=== PATIENT | female | born 1975 | race Caucasian/White ===

== ENCOUNTER 2017-10-03 12:24 | Emergency (ER) | payer MEDICAID ==
[2017-10-03 12:33] VITALS: TEMP 98.4
[2017-10-03] MEDS ORDERED: ASPIRIN 81 MG CHEWABLE TAB PO ONE (12:35)
--- NOTE | 2017-10-03 12:39 | CPEKG ---
Heart Rate: 85 RR Interval: 706 P-R Interval: 188 QRSD Interval: 78 QT Interval: 360 QTC Interval: 428 P [place]: 37 QRS [place]: -3 T Wave [place]: 38 EKG Severity - ABNORMAL ECG - EKG Impression: SINUS RHYTHM EKG Impression: NONSPECIFIC T ABNORMALITIES, ANTERIOR LEADS Electronically Signed By: Isaac Perkins 06-Oct-2017 11:06:38
--- NOTE | 2017-10-03 12:39 | CPEKG ---
Heart Rate: 85 RR Interval: 706 P-R Interval: 188 QRSD Interval: 78 QT Interval: 360 QTC Interval: 428 P [place]: 37 QRS [place]: -3 T Wave [place]: 38 EKG Severity - ABNORMAL ECG - EKG Impression: SINUS RHYTHM EKG Impression: NONSPECIFIC T ABNORMALITIES, ANTERIOR LEADS Electronically Signed By: Isaac Perkins 06-Oct-2017 11:06:38
--- NOTE | 2017-10-03 12:56 | EDPHY ---
H & P Stated Complaint: substernal sharp chest pain off and on 1 hour [employer]; L arm numb ; sob Source: Patient - Personal History LMP (Females 10-55): 8-14 Days Ago Current Tetanus/Diphtheria Vaccine: Unsure - Medical/Surgical History Hx Asthma: No Hx Chronic Respiratory Disease: No Hx Diabetes: No Hx Cardiac Disease: No Hx Renal Disease: No Hx Cirrhosis: No Hx Alcoholism: No Hx HIV/AIDS: No Hx Splenectomy or Spleen Trauma: No Other PMH: C-SEC. ANXIETY. ANEMIA - Family History Significant Family History: No pertinent family hx - Social History Smoking Status: Former smoker Time Seen by Provider: 10/03/17 12:40 HPI/ROS: CHIEF COMPLAINT: Chest pain and shortness of breath History by patient HISTORY OF PRESENT ILLNESS: 42-year-old woman with history of anxiety for which she sometimes takes Xanax presents complaining of shortness of breath which began this morning while she was getting her son ready to go to school. After dropping him off while driving she was still feeling short of breath but then developed a sharp stabbing substernal chest pain which lasted a few seconds. She had 4 episodes of this pain. She now complains of some chest pressure which she describes as light. She also still feels short of breath and has some left arm tingling. She took half of a Xanax pill without any relief of her symptoms. Patient states that she has had this shortness of breath and left arm tingling intermittently in the past but cannot relate this to on exertion or other specific triggers. Patient states that she can sometimes get it wall walking 3 steps and sometimes not get it after walking 3 miles. She denies any leg pain or swelling. She quit smoking 6 years ago. She is not on any hormones. There is no family history of first-degree relatives with cardiac disease or blood clotting. She has no history of hypertension, diabetes and her cholesterol is unknown but she does state that she has gained some weight recently. REVIEW OF SYSTEMS: As in HPI, and all other systems reviewed and are negative (Emily Tom) - Physical Exam Exam: General Appearance: Alert, obese, pleasant, well-appearing. Head: normocephalic, atraumatic Eyes: Pupils equal and round, reactive to light, no pallor or injection. Mouth: Mucous membranes moist. Respiratory: Normal, effort, lungs are clear to auscultation. No wheezes, rales or rhonchi. Cardiovascular: Tachycardia. S1, S2, no murmurs, gallops or rubs appreciated Gastrointestinal: Abdomen is soft and nontender, no masses, bowel sounds normal. Back: No CVA tenderness, no bony tenderness Neurological: Awake, alert and oriented x 3, no pronator drift, normal gait, no pronator drift Skin: Warm and dry, no rashes. Musculoskeletal: No deformities or tenderness. Extremities: full range of motion, no edema, no tenderness DP2+ bilat Psychiatric: Patient has normal affect, there is no agitation. (Emily Tom) Constitutional: Initial Vital Signs Temperature (C) 36.9 C 10/03/17 12:30 Heart Rate 104 H 10/03/17 12:30 Respiratory Rate 20 10/03/17 12:30 Blood Pressure 125/81 H 10/03/17 12:30 O2 Sat (%) 96 10/03/17 12:30 O2 Delivery Mode Room Air Allergies/Adverse Reactions: TOMATOES Allergy (Uncoded 06/15/14 17:55) Home Medications: Medication Instructions Recorded Xanax 0.5 MG (RX) PRN 04/08/14 Medical Decision Making - Diagnostics EKG Interpretation: Normal sinus rhythm at 85 with normal axis, normal intervals and inverted T- waves in the anterior leads. There is no old EKG available for comparison. Impression: Abnormal EKG, no acute ischemia (Emily Tom) An EKG obtained and was read and documented in trace view. Please see trace view for full reading and report. Sinus rhythm, T-wave inversions anterior leads unchanged from previous (Dallas Lewis) Imaging Results: Imaging Impressions Chest X-Ray 10/03/17 12:52 Impression: 1. Bronchitis/airways disease. 2. Left lower lobe linear atelectasis versus pneumonitis. Findings discussed with Emergency Department physician, Emily Tom MD, at 1324 hours, 10/03/2017. Final report concurs with initial preliminary interpretation. ED Course/Re-evaluation: 42-year-old woman presents complaining of shortness of breath and chest pain. Patient is noted to be intermittently tachycardic with sinus tachycardia and normal sinus rhythm on the monitor. Patient has an abnormal EKG, with nonspecific ST changes but there is no evidence of an acute NV. Chest x-ray showed nothing acute however the radiologist reading as possibly early pneumonitis versus streaky atelectasis. 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 I did discuss this with her again. Therefore will not treat any infectious process at this time. Patient has a negative D-dimer and she has a low pretest probability of pulmonary embolism thus ruling out this diagnosis. Patient does note that she has been seen previously in the emergency department at [facility] for which she describes not his shortness of breath but has difficulty catching her breath and also had a negative workup at that time. Although her symptoms are atypical because of her abnormal EKG we will go ahead and repeat a troponin at 3:00 a.m. as well as a repeat EKG. If this is negative I think the patient can safely follow up with her primary care physician and referred to Cardiology as needed. I discussed this with the patient and her and they understand and are agreeable to this plan. ( Emily Tom) 505 p.[address]. patient's plan with Dr. hudson was to go home after her 2nd troponin. The patient's 2nd troponin has been drawn. She does not wish to wait for the results. She will even call back. She has no further complaints. She refuses to stay to wait for the results. She is to pick her son up at school. (Dallas Lewis) - Data Points Laboratory Results: Laboratory Results 10/03/17 12:46 10/03/17 12:46 10/03/17 10/03/17 10/03/17 15:45 12:46 12:46 WBC RBC Hgb Hct MCV MCH MCHC RDW Plt Count MPV Neut % (Auto) Lymph % (Auto) [place] % (Auto) Eos % (Auto) Baso % (Auto) Nucleat RBC Rel Count Absolute Neuts (auto) Absolute Lymphs (auto) Absolute Monos (auto) Absolute Eos (auto) Absolute Basos (auto) Absolute Nucleated RBC Immature Gran % Immature Gran # D-Dimer 0.29 ug/mLFEU ug/mLFEU (0.00-0.50) Sodium 142 mEq/L mEq/L (134-144) Potassium 3.8 mEq/L mEq/L (3.5-5.2) Chloride 106 mEq/L mEq/L (97-110) Carbon Dioxide 24 mEq/l mEq/l (22-31) Anion Gap 12 mEq/L mEq/L (8-16) BUN 13 mg/dL mg/dL (7-23) Creatinine 0.8 mg/dL mg/dL (0.6-1.0) Estimated GFR > 60 Glucose 98 mg/dL mg/dL (70-100) Calcium 9.4 mg/dL mg/dL (8.5-10.4) Troponin I Pending 0.012 ng/mL ng/mL (0.000-0.034) 10/03/17 12:46 WBC 6.68 10^3/uL 10^3/uL (3.80-9.50) RBC 5.02 10^6/uL 10^6/uL (4.18-5.33) Hgb 14.6 g/dL g/dL (12.6-16.3) Hct 43.4 % % (38.0-47.0) MCV 86.5 fL fL (81.5-99.8) MCH 29.1 pg pg (27.9-34.1) MCHC 33.6 g/dL g/dL (32.4-36.7) RDW 12.9 % % (11.5-15.2) Plt Count 315 10^3/uL 10^3/uL (150-400) MPV 8.9 fL fL (8.7-11.7) Neut % (Auto) 61.9 % % (39.3-74.2) Lymph % (Auto) 27.1 % % (15.0-45.0) [place] % (Auto) 8.7 % % (4.5-13.0) Eos % (Auto) 1.6 % % (0.6-7.6) Baso % (Auto) 0.4 % % (0.3-1.7) Nucleat RBC Rel Count 0.0 % % (0.0-0.2) Absolute Neuts (auto) 4.13 10^3/uL 10^3/uL (1.70-6.50) Absolute Lymphs (auto) 1.81 10^3/uL 10^3/uL (1.00-3.00) Absolute Monos (auto) 0.58 10^3/uL 10^3/uL (0.30-0.80) Absolute Eos (auto) 0.11 10^3/uL 10^3/uL (0.03-0.40) Absolute Basos (auto) 0.03 10^3/uL 10^3/uL (0.02-0.10) Absolute Nucleated RBC 0.00 10^3/uL 10^3/uL (0-0.01) Immature Gran % 0.3 % % (0.0-1.1) Immature Gran # 0.02 10^3/uL 10^3/uL (0.00-0.10) D-Dimer Sodium Potassium Chloride Carbon Dioxide Anion Gap BUN Creatinine Estimated GFR Glucose Calcium Troponin I Medications Given: Discontinued Medications Aspirin (Aspirin) 324 mg PO EDNOW ONE Stop: 10/03/17 12:36 Last Admin: 10/03/17 12:38 Dose: 324 mg Sodium Chloride (Ns) 1,000 mls @ 0 mls/hr IV EDNOW ONE; Wide Open PRN Reason: Protocol Stop: 10/03/17 14:12 Last Admin: 10/03/17 14:12 Dose: 1,000 mls Departure - Departure Disposition: Home, Routine, Self-Care Clinical Impression: Chest pain Condition: Fair Instructions: Chest Pain (ED) Referrals: Isabel Keen PA [Primary Care Provider] - As per Instructions
[2017-10-03 13:00] LABS: PLATELET COUNT 315 10^3/uL (150-400)
[2017-10-03] MEDS ORDERED: NS 1,000 ML IV ONE (14:11)
--- NOTE | 2017-10-03 15:44 | CPEKG ---
Heart Rate: 84 RR Interval: 714 P-R Interval: 180 QRSD Interval: 78 QT Interval: 380 QTC Interval: 450 P [place]: 49 QRS [place]: -4 T Wave [place]: 38 EKG Severity - BORDERLINE ECG - EKG Impression: SINUS RHYTHM EKG Impression: BORDERLINE R WAVE PROGRESSION, ANTERIOR LEADS EKG Impression: BORDERLINE T ABNORMALITIES, ANTERIOR LEADS EKG Impression: Similar to previous Electronically Signed By: Dallas Lewis 03-Oct-2017 15:50:22
--- NOTE | 2017-10-03 15:44 | CPEKG ---
Heart Rate: 84 RR Interval: 714 P-R Interval: 180 QRSD Interval: 78 QT Interval: 380 QTC Interval: 450 P [place]: 49 QRS [place]: -4 T Wave [place]: 38 EKG Severity - BORDERLINE ECG - EKG Impression: SINUS RHYTHM EKG Impression: BORDERLINE R WAVE PROGRESSION, ANTERIOR LEADS EKG Impression: BORDERLINE T ABNORMALITIES, ANTERIOR LEADS EKG Impression: Similar to previous Electronically Signed By: Dallas Lewis 03-Oct-2017 15:50:22
[2017-10-03 17:38] VITALS: BP 129/78; PULSE 84; RESP 16; O2SAT 95
== END 2017-10-03 17:10 | disposition home or self-care (01) ==
LOC: CED 12:24
PROC: 3E0337Z Introduction of Electrolytic and Water Balance Substance into Peripheral Vein, Percutaneous Approach (ICD-10-PCS; principal; 2017-10-03)
DX: R07.9 Chest pain, unspecified (principal); E86.9 Volume depletion, unspecified; Z87.891 Personal history of nicotine dependence
CPT/HCPCS: 71020-PO; 80048-PO; 84484-PO; 85025-PO; 85378-PO